=== PATIENT | male | born 1965 | race African-American/Black ===

== ENCOUNTER → 2017-09-17 | Outpatient (CLI) | payer OTHER ==
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
== END | disposition home or self-care (01) ==
LOC: EDUNIT# 11:15 → RADMRIMAIN 11:16
PROVIDERS: ATTEND Psychiatry & Neurology Neurology
DX: S63.592A Other specified sprain of left wrist, initial encounter (principal); S61.512A Laceration without foreign body of left wrist, initial encounter; M19.032 Primary osteoarthritis, left wrist; Z88.1 Allergy status to other antibiotic agents

== ENCOUNTER 2018-02-05 21:26 | Emergency (ER) | payer OTHER ==
[2018-02-05] MEDS ORDERED: SODIUM CHLORIDE 0.9% 500 ML IV STA (23:01)
[2018-02-05] MEDS ORDERED: diphenhydrAMINE 50 MG/ML 1 ML VIAL IVP STA (23:01)
[2018-02-05] MEDS ORDERED: METOCLOPRAMIDE 5 MG/ML 2 ML VIAL IVP STA (23:01)
[2018-02-05] MEDS ORDERED: ORPHENADRINE 30 MG/ML 2 ML VIAL IVP STA (23:03)
[2018-02-05 23:29] LABS: Basophils % (A) 0 %; Eosinophils # (A) 0.2 k/uL (0-0.7); Eosinophils % (A) 2 %; HCT 39.7 % (39.0-53.0); HGB 13.1 gm/dL (13.0-17.5); Lymphocytes % (A) 31 %; MCH 29.1 pg (25.0-35.0); MCHC 33.2 g/dL (31.0-37.0); MCV 87.9 fL (80.0-100.0); Mean Platelet Volume 7.8; Monocytes # (A) 0.4 k/uL (0-1.0); Monocytes % (A) 6 %; Neutrophils # (A) 3.9 k/uL (1.3-7.7); Neutrophils % (A) 60 %; Platelet Count 328 k/uL (150-450); RBC 4.51 m/uL (4.30-5.90); RDW 13.9 % (11.5-15.5); WBC 6.4 k/uL (3.8-10.6)
--- NOTE | 2018-02-05 23:32 | ED ---
Headache HPI - General Chief Complaint: Headache Stated Complaint: congestion/headache Time Seen by Provider: 02/05/18 22:54 Source: patient, RN notes reviewed Mode of arrival: wheelchair Limitations: no limitations - History of Present Illness Initial Comments: This is a 52-year-old male presents emergency department to complaint of headache. Patient is a headache some present for 1 week. 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 Patient states he also has left thigh pain. Patient states it hurts to open his left eye. Denies any trauma. Denies any known fever, chills , neck pain, neck stiffness. Patient is no focal weakness denies any nausea vomiting. Does have photosensitivity. Patient states that he has never had a headache like this in the past. Patient does not any blood thinners at this time. Patient has no history of glaucoma. - Related Data Previous Rx's Medication Instructions Recorded Butalb/APAP/Caff 50-325-40Mg 1 tab PO Q4H PRN #14 tablet 02/06/18 [Fioricet 50-325-40] Allergies Allergy/AdvReac Type Severity Reaction Status Date / Time cephalexin [From Keflex] Allergy Swelling Verified 02/05/18 22:00 Review of Systems ROS Statement: Those systems with pertinent positive or pertinent negative responses have been documented in the HPI. ROS Other: All systems not noted in ROS Statement are negative. Past Medical History Past Medical History: No Reported History History of Any Multi-Drug Resistant Organisms: None Reported Additional Past Surgical History / Comment(s): left wrist surgery Past Psychological History: No Psychological Hx Reported Smoking Status: Never smoker Past Alcohol Use History: None Reported Past Drug Use History: Marijuana General Exam Limitations: no limitations General appearance: alert, in no apparent distress Head exam: Present: atraumatic, normocephalic, normal inspection Eye exam: Present: normal appearance, PERRL, EOMI, other (Patient relief of proparacaine, dye and Wood's lamp was used to evaluate the left eye there is possible corneal abrasion. Pressure was checked with tonometer 17 on the left) . Absent: scleral icterus, conjunctival injection, periorbital swelling ENT exam: Present: normal exam, normal oropharynx, mucous membranes moist, TM's normal bilaterally Neck exam: Present: normal inspection, full ROM. Absent: tenderness, meningismus, lymphadenopathy Respiratory exam: Present: normal lung sounds bilaterally. Absent: respiratory distress, wheezes, rales, rhonchi, stridor Cardiovascular Exam: Present: regular rate, normal rhythm, normal heart sounds. Absent: systolic murmur, diastolic murmur, rubs, gallop, clicks GI/Abdominal exam: Present: soft, normal bowel sounds. Absent: distended, tenderness, guarding, rebound, rigid Neurological exam: Present: alert, oriented X3, CN II-XII intact, reflexes normal, other (Finger to nose intact bilaterally without overshooting.). Absent : motor sensory deficit Skin exam: Present: warm, dry, intact, normal color. Absent: rash Course Vital Signs 02/05/18 21:56 Temperature 98.1 F Pulse Rate 60 Respiratory 17 Rate Blood Pressure 128/69 O2 Sat by Pulse 96 Oximetry - Reevaluation(s) Reevaluation #1: 02/06/18 00:43 Patient was updated on lab results and CT patient states he is feeling improved. Medical Decision Making - Medical Decision Making 52-year-old male presented for left sided headache has been on for 1 week. 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 Patient complains of mild left thigh irritation. He had relief of proparacaine there appears to be a slight abrasion. Patient was placed on Tobrex eyedrops. His headache is improved. He'll be discharged with fierce that for migraine headaches. There is no evidence of shingles or any neurological deficits. Patient will return for any worsening symptoms. - Lab Data Result diagrams: 02/05/18 23:20 02/05/18 23:20 Lab Results 02/05/18 02/05/18 Range/Units 23:20 23:20 WBC 6.4 (3.8-10.6) k/uL RBC 4.51 (4.30-5.90) m/uL Hgb 13.1 (13.0-17.5) gm/dL Hct 39.7 (39.0-53.0) % MCV 87.9 (80.0-100.0) fL MCH 29.1 (25.0-35.0) pg MCHC 33.2 (31.0-37.0) g/dL RDW 13.9 (11.5-15.5) % Plt Count 328 (150-450) k/uL Neutrophils % 60 % Lymphocytes % 31 % Monocytes % 6 % Eosinophils % 2 % Basophils % 0 % Neutrophils # 3.9 (1.3-7.7) k/uL Lymphocytes # 2.0 (1.0-4.8) k/uL Monocytes # 0.4 (0-1.0) k/uL Eosinophils # 0.2 (0-0.7) k/uL Basophils # 0.0 (0-0.2) k/uL Sodium 140 (137-145) mmol/L Potassium 4.0 (3.5-5.1) mmol/L Chloride 104 (98-107) mmol/L Carbon Dioxide 24 (22-30) mmol/L Anion Gap 12 mmol/L BUN 13 (9-20) mg/dL Creatinine 0.90 (0.66-1.25) mg/dL Est GFR (CKD-EPI)AfAm >90 (>60 ml/min/1.73 sqM) Est GFR (CKD-EPI)NonAf >90 (>60 ml/min/1.73 sqM) Glucose 129 H (74-99) mg/dL Calcium 9.3 (8.4-10.2) mg/dL Total Bilirubin 0.4 (0.2-1.3) mg/dL AST 35 (17-59) U/L ALT 29 (21-72) U/L Alkaline Phosphatase 68 (38-126) U/L Total Protein 7.4 (6.3-8.2) g/dL Albumin 4.1 (3.5-5.0) g/dL Disposition Clinical Impression: Migraine, Corneal abrasion Disposition: HOME SELF-CARE Condition: Stable Instructions: Acute Headache (ED) Additional Instructions: Please return to the Emergency Department if symptoms worsen or any other concerns. Prescriptions: Butalb/APAP/Caff 50-325-40Mg [Fioricet 50-325-40] 1 tab PO Q4H PRN #14 tablet PRN Reason: Headache Referrals: Sneha Harper MD [Primary Care Provider] - 1-2 days Time of Disposition: 00:45
[2018-02-05 23:39] LABS: ALT 29 U/L (21-72); AST 35 U/L (17-59); Albumin 4.1 g/dL (3.5-5.0); Alkaline Phosphatase 68 U/L (38-126); Anion Gap 12 mmol/L; Blood Urea Nitrogen 13 mg/dL (9-20); Calcium 9.3 mg/dL (8.4-10.2); Carbon Dioxide 24 mmol/L (22-30); Chloride 104 mmol/L (98-107); Glucose 129 mg/dL (74-99); Sodium 140 mmol/L (137-145); Total Bilirubin 0.4 mg/dL (0.2-1.3); Total Protein 7.4 g/dL (6.3-8.2)
--- NOTE | 2018-02-05 23:44 | CT ---
EXAMINATION TYPE: CT brain wo con DATE OF EXAM: 02/05/2018 COMPARISON: NONE HISTORY: headache CT DLP: 1029.90 mGycm Automated exposure control for dose reduction was used. FINDINGS: Ventricles and sulci appear normal. There is no mass effect nor midline shift. There is no sign of in tracranial hemorrhage. The calvarium appears intact. IMPRESSION: NEGATIVE CT SCAN OF THE BRAIN.
[2018-02-05] MEDS ORDERED: KETOROLAC 30 MG/ML 1 ML VIAL IVP STA (23:47)
[2018-02-06] MEDS ORDERED: TOBRAMYCIN 0.3% OPHTH DROPS 5 ML BTL LEFT EYE STA (00:44)
[2018-02-06 01:03] VITALS: BP 119/74; PULSE 51; RESP 18; TEMP 98
[2018-02-06] MEDS ORDERED: TOBRAMYCIN 0.3% OPHTH OINT 3.5 GM TUBE RIGHT EYE STA ×2 (01:12→01:17)
[2018-02-06] MEDS ORDERED: TOBRAMYCIN 0.3% OPHTH OINT 3.5 GM TUBE LEFT EYE STA (01:13)
== END 2018-02-06 01:29 | disposition home or self-care (01) ==
LOC: EC 21:26
DX: S05.02XA Injury of conjunctiva and corneal abrasion without foreign body, left eye, initial encounter (principal); G43.909 Migraine, unspecified, not intractable, without status migrainosus; M76.52 Patellar tendinitis, left knee; Z88.1 Allergy status to other antibiotic agents
CPT/HCPCS: 99284; 96374; 96375 ×3; 96361; 36415; 93005; 80053; 85025; 70450; J1200; J2360; J2765; J1885

== ENCOUNTER → 2018-03-05 | Outpatient (CLI) | payer OTHER ==
--- NOTE | 2018-03-05 13:02 | MR ---
EXAMINATION TYPE: MR brain wo/w con DATE OF EXAM: 03/05/2018 COMPARISON: CT 02/05/2018 HISTORY: 52-year-old male Headache / Ocular pain, left eye TECHNIQUE: Multiplanar, multisequence images of the brain and brainstem were acquired before and aft er administration of 9.5 mL IV Gadavist. Diffusion weighted imaging is performed. FINDINGS: No evidence for acute infarction, hemorrhage, mass, mass effect, midline shift, herniation, effacemen t of basal cisterns, or extra-axial fluid collection. The ventricles and sulci are age-appropriate. Major intracranial flow voids are intact. T2/FLAIR weighted sequences show trace burden of bright white matter change with one focus in the sub cortical region of the right frontal lobe and 2 subcortical foci in the left frontal lobe. Midline structures demonstrate normal morphology. The craniocervical junction is normal. Post contrast images demonstrate no evidence of pathologic enhancement. Dural venous sinuses are pat ent. Mild mucosal thickening ethmoid air cells. Globes are intact. IMPRESSION: Only 3 punctate foci of bright white matter change in the subcortical bifrontal white matter. Nonspec ific, probably relating to very early changes of chronic small vessel ischemic disease. Chronic migra rhoda are an alternative consideration and can be correlated clinically. Otherwise, no intracranial ab normality seen.
--- NOTE | 2018-03-05 13:17 | MR ---
EXAMINATION TYPE: MR angio head wo con DATE OF EXAM: 03/05/2018 COMPARISON: MRI brain same day HISTORY: 52-year-old male Headache TECHNIQUE: High-resolution 3-D [id number]-bx-[id number] images focusing on the Nikolai of [place] were performed without contrast. FINDINGS: Bilateral patent posterior communicating arteries are noted. There is slight tortuosity at the origin of the left ophthalmic artery. No significant stenosis, arterial occlusion, or aneurysmal changes seen. IMPRESSION: No specific abnormality on MR angiography of the agdaagux of [place].
== END | disposition home or self-care (01) ==
LOC: RADMRIMAIN 11:19
PROVIDERS: ATTEND Family Medicine
DX: G31.9 Degenerative disease of nervous system, unspecified (principal); R90.82 White matter disease, unspecified; R51 Headache; H57.12 Ocular pain, left eye
CPT/HCPCS: 70544; 70553; A9581

== ENCOUNTER 2020-03-25 10:35 | Emergency (ER) | payer OTHER ==
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
[2020-03-25 12:28] VITALS: BP 116/77; PULSE 50; RESP 18; TEMP 97.9
== END 2020-03-25 12:28 | disposition home or self-care (01) ==
LOC: EC 10:35
DX: Z04.1 Encounter for examination and observation following transport accident (principal); Z88.1 Allergy status to other antibiotic agents
CPT/HCPCS: 70450; 72125; 99284

== ENCOUNTER → 2021-08-11 | Day surgery (SDC) | payer OTHER ==
[2021-08-09 11:33] VITALS: BMI 30.7
[~2021-08-11] MED LIST: LACTATED RINGERS 1,000 ML IV ONE; LACTATED RINGERS 1,000 ML IV SCH; LIDOCAINE 1% INJ 10MG/ML (20 ML MDV) ONE; PROPOFOL 10 MG/ML 20 ML VIAL IV ONE
[2021-08-11 09:33] VITALS: TEMP 97.7
--- NOTE | 2021-08-11 10:46 | P.GSHP ---
History of Present Illness H&P Date: 08/11/21 Chief Complaint: GI bleed This a 55-year-old male who presents today for EGD and colonoscopy. Patient's found to be occult blood positive Past Medical History Past Medical History: No Reported History Additional Past Medical History / Comment(s): "dr saw blood in stool", "I can not hold anything in my left hand" History of Any Multi-Drug Resistant Organisms: None Reported Past Surgical History: Orthopedic Surgery Additional Past Surgical History / Comment(s): left hand surgery-nerve and tendon repaired after injury, colonocopy Past Anesthesia/Blood Transfusion Reactions: No Reported Reaction Smoking Status: Never smoker - Past Family History Father Family Medical History: Cancer Additional Family Medical History / Comment(s): pancreatic cancer Medications and Allergies Home Medications Medication Instructions Recorded Confirmed Type No Known Home Medications 08/09/21 08/09/21 History Allergies Allergy/AdvReac Type Severity Reaction Status Date / Time cephalexin [From Keflex] Allergy Swelling Verified 08/09/21 11:28 latex Allergy Rash/Hives Verified 08/09/21 11:34 Surgical - Exam Vital Signs Temp Pulse Resp BP Pulse Ox 97.7 F 62 18 176/77 100 08/11/21 09:32 08/11/21 09:32 08/11/21 09:32 08/11/21 09:32 08/11/21 09:32 - General well developed, well nourished, no distress - Eyes PERRL - ENT normal pinna - Neck no masses - Respiratory normal expansion - Cardiovascular Rhythm: regular - Abdomen Abdomen: soft, non tender Assessment and Plan Assessment: GI bleed. We'll perform EGD and colonoscopy.
--- NOTE | 2021-08-11 11:02 | P.OP ---
Date of Procedure: 08/11/21 Preoperative Diagnosis: GI bleed Postoperative Diagnosis: Antral gastritis Normal colon Procedure(s) Performed: EGD Colonoscopy Anesthesia: MAC Surgeon: Daniel Mejia Pathology: other (Antrum) Condition: stable Disposition: PACU Description of Procedure: Patient's placed on the endoscopy table in the lateral he received IV sedation. The gastroscope was oropharynx past esophagus stomach. Scope was then placed through the pylorus. First and second portion duodenum appeared normal. Scope was brought back and the antrum and this was inflamed. A biopsies performed. Scope was then retroflexed and the remainder of the stomach appeared normal. The GE junction was at 40 cm the distal esophagus. Normal. The proximal esophagus appeared normal. Scope withdrawn the patient. Next digital rectal exam was performed, this revealed no abnormalities. The flexible colonoscope was then placed patient anus passed throughout the entire colon. The ileocecal valve was visually. The cecum, ascending and transverse colon appeared normal. The descending and; appeared normal. Scope back the rectum this appeared normal. Scope was brought patient. There is no evidence of GI bleed. Resume the patient's Hemoccult blood positive was due to gastritis
[2021-08-11 11:08] VITALS: RESP 16
[2021-08-11 11:25] VITALS: BP 123/76; PULSE 56
== END | disposition home or self-care (01) ==
LOC: ORWHC2ENDO 09:18
PROVIDERS: ATTEND Surgery
DX: K29.50 Unspecified chronic gastritis without bleeding (principal); Z80.0 Family history of malignant neoplasm of digestive organs; Z91.040 Latex allergy status; Z88.1 Allergy status to other antibiotic agents; Z98.890 Other specified postprocedural states
CPT/HCPCS: 88305; 88342; 45378; 43239; J2001; J2704